=== PATIENT | male | born 2000 | race Hispanic/Latino ===

== ENCOUNTER 2020-05-03 20:39 | Emergency (ER) | payer SELFPAY ==
[~2020-05-03] VITALS: Ht 180.3 cm; Wt 61.2 kg
[2020-05-03] MEDS ORDERED: LIDOCAINE HCL 1% LOCAL INJ 20 ML VIAL INJ STA (21:27)
[2020-05-03] MEDS ORDERED: TETANUS/DIPHTHERIA TOX ADULT 0.5 ML SYR IM STA (21:27)
[2020-05-03] MEDS ORDERED: ACETAMINOPHEN500 MG PO (21:37)
[2020-05-03] MEDS ORDERED: DOXYCYCLINE HY100 MG PO (21:37)
[2020-05-03] MEDS ORDERED: IBUPROFEN IB200 MG PO (21:37)
[2020-05-03] MEDS ORDERED: TETANUS/DIPHTHERIA TOX ADULT 0.5 ML SYR ONE (21:43)
== END 2020-05-03 22:20 | disposition home or self-care (01) ==
LOC: FSED 20:50
DX: S61.300A Unspecified open wound of right index finger with damage to nail, initial encounter (principal); S62.630A Displaced fracture of distal phalanx of right index finger, initial encounter for closed fracture; W23.1XXA Caught, crushed, jammed, or pinched between stationary objects, initial encounter; Y99.0 Civilian activity done for income or pay
CPT/HCPCS: 90471; 90714; 99283